=== PATIENT | female | born 2000 | race Caucasian/White ===

== ENCOUNTER 2022-01-07 08:17 | Emergency (ER) | payer SELFPAY ==
[2022-01-07 09:58] LABS: HIV (1/2) Antibody/Antigen Non-Reactive (NonReactive); Hep C IgG Ab Non-Reactive (NonReactive); Hep C Index 0.14 S/CO (0-0.79)
[2022-01-07 10:00] LABS: HBSAB Concentration 105.23 mIU/mL; Hep B Surf AB Reactive (NonReactive)
== END 2022-01-07 09:32 | disposition home or self-care (01) ==
LOC: ERS 08:17
DX: Z77.21 Contact with and (suspected) exposure to potentially hazardous body fluids (principal)
CPT/HCPCS: 36415; 99283

== ENCOUNTER 2022-02-15 13:20 | Emergency (ER) | payer OTHER | END 2022-02-15 15:19 | disposition home or self-care (01) | LOC: ERS 13:20 | DX: F10.129 Alcohol abuse with intoxication, unspecified (principal) | CPT/HCPCS: 96374 ==